=== PATIENT | male | born 1940 | race Caucasian/White ===

== ENCOUNTER 2024-09-21 20:42 | Observation (INO) | payer MEDICARE, SELFPAY ==
[2024-09-21] VITALS (13 sets, daily range): BP systolic 129–162; BP diastolic 68–84; PULSE 64–65; BMI 25.1; BMI 24.8
[2024-09-21 14:56] LABS: % Basophils 0.3 % (0-2); % Eosinophils 1.5 % (0-6); % Immature Granulocytes 0.3 % (0-0.5); % Lymphocytes 33.2 % (20.5-51.1); % Monocytes 9.7 % (1.7-9.3); Absolute Eosinophils 0.1 10^3/uL (0-0.7); Absolute Lymphocytes 1.1 10^3/uL (1.2-3.4); Absolute Monocytes 0.3 10^3/uL (0.1-0.6); Absolute Neutrophils 1.9 10^3/uL (1.4-6.5); Hematocrit 36.2 % (39.0-52.0); Hemoglobin 12.1 g/dL (13.0-18.0); Mean Corp Hgb Conc. 33.4 g/dL (33.0-37.0); Mean Corpuscular Hgb 34.7 pg (27.0-31.0); Mean Corpuscular Volume 103.7 fL (80.0-94.0); Mean Platelet Volume 10.4 fL (7.4-10.4); Nucleated Red Blood Cells % 0 % (-); Platelet Count 100 10^3/uL (130-400); Red Blood Cell Count 3.49 10^6/uL (4.70-6.10); Red Cell Dist. Width 13.4 % (11.5-14.5); White Blood Cell Count 3.4 10^3/uL (4.8-10.8)
[2024-09-21 15:12] LABS: ALT (SGPT) 23 U/L (0-50); AST (SGOT) 26 U/L (17-59); Albumin 3.9 g/dl (3.5-5.0); Alkaline Phosphatase 93 U/L (38-126); Blood Urea Nitrogen 18 mg/dl (9-20); Calcium 10.5 mg/dl (8.4-10.2); Carbon Dioxide 26 mmol/L (22-30); Chloride 108 mmol/L (98-107); Glucose 100 mg/dl (70-99); Potassium 4.3 mmol/L (3.5-5.1); Sodium 140 mmol/L (135-145); Total Bilirubin 0.5 mg/dl (0.2-1.3); Total Protein 6.2 g/dl (6.3-8.2); eGFR > 60.00
--- NOTE | 2024-09-21 17:49 | ED.CVA ---
History of Present Illness
General
Chief Complaint: CVA/TIA Symptoms
Source: patient and family
Time Seen by Provider: 09/21/24 14:59
Onset of Stroke Symptoms
Onset of symptoms known: No
Time pt last seen normal is known: No
History of Present Illness
History of Present Illness:
83-year-old male presents to the emergency room for evaluation of double vision and gait dysfunction. Symptoms began yesterday at some point. They seem to wax and wane in intensity. Patient describes his double vision is being 2 versions of what
he is seeing arranged in a vertical or diagonal pattern. The double vision is much worse with both eyes open. It goes away when his right eye is covered. Seems to be persistent when left eye is covered. Denies any headache. Family describes the
patient as cognitively sharp and active. He does not typically use any aids to ambulate but he did need to use his 's walker today. He definitely does not seem himself to them today.
Past History
Past History
ED Past Medical History: Other (head trauma in 01/2014 w/ 'bleeding in brain') and Other (Seizure disorder, aortic valve replacement with a Bovine valve, status post hip replacement, renal cell carcinoma status post nephrectomy in 2003)
Social History
Tobacco: Non-smoker
Alcohol: Occasional
Personal:
Living: with family
Family History
Family History: Other (Reviewed and non-contributory); Negative Diabetes
Phy Exam
Physical Exam
Physical Exam:
General: Awake, Alert, Oriented X3. No acute distress, appears somewhat disheveled
Vitals: unremarkable
Head: Atraumatic
Eyes: Pupils equal, extraocular muscle movement appears intact
Throat: Airway intact, no exudates
Neck: Trachea midline
Lungs: Clear and equal b/l
Heart: Regular rate, no murmurs
Abd: Soft, Nontender, No pulsatile mass
Neuro: Cranial nerves intact, muscle strength equal bilaterally, cerebellar exam normal
Skin: Warm, dry, no rash
Extremities: pulses equal b/l, no edema
Course
Orders/Labs/Results
Orders:
Orders
09/21/24 14:50
Complete Blood Count/With Diff Urgent
Comprehensive Metabolic Panel Urgent
09/21/24 15:10
CT Head & Neck Angio W/wo IV Urgent
Comment:
Reason For Exam: diplopia, ataxia
09/21/24 15:13
Electrocardiogram (*1) Stat
Reason for Study: Other
Other Reason for Exam: neuro symptoms
Cardiac Monitoring- Treatment ONCE
EKG- Treatment ONCE
09/21/24 17:48
Aspirin Chewable [Low Strength Aspirin] 324 mg PO NOW STA
Abnormal Lab Results
09/21/24
14:50
WBC 3.4 L 10^3/uL
(4.8-10.8)
RBC 3.49 L 10^6/uL
(4.70-6.10)
Hgb 12.1 L g/dL
(13.0-18.0)
Hct 36.2 L %
(39.0-52.0)
MCV 103.7 H fL
(80.0-94.0)
MCH 34.7 H pg
(27.0-31.0)
Plt Count 100 L 10^3/uL
(130-400)
Absolute Lymphs (auto) 1.1 L 10^3/uL
(1.2-3.4)
Monocytes % 9.7 H %
(1.7-9.3)
Chloride 108 H mmol/L
(98-107)
Glucose 100 H mg/dl
(70-99)
Calcium 10.5 H mg/dl
(8.4-10.2)
Total Protein 6.2 L g/dl
(6.3-8.2)
09/21/24 14:50
09/21/24 14:50
Vital Signs
Initial and Last Documented VS:
Initial Vital Signs
BP
140/79
09/21/24 13:33
Last Documented Vital Signs
Temp Pulse Resp BP Pulse Ox
97.9 F 55 18 145/75 96
09/21/24 13:35 09/21/24 18:45 09/21/24 18:45 09/21/24 16:01 09/21/24 18:45
MDM/Problems Addressed
Differential Diagnosis Includes:
CVA, intracranial lesion, subdural, electrolyte abnormality
MDM/Problems Addressed:
CT read is unremarkable. Labs also are unremarkable. However patient's symptoms persist. He he went to the bathroom and nursing observed him to need the assistance of a walker. Suspect the patient may have had a ischemic event affecting the
cerebellum. He will require hospitalization for further workup. Patient given 4 baby aspirin in the meantime.
Chronic conditions affecting care: HTN
*Radiology
Radiology exam reviewed: radiology read reviewed
*Pulse Oximetry
Patient hypoxic: no
*EKG
Interpretation: normal
Heart Rate: 71
Rate: normal
QRS Pattern: left bundle branch block
Ischemia: non-specific ST changes
*Delivery Engineer Interpretation
Rate: normal
Interpretation: normal
Rhythm: sinus
*Critical Care Note
Total Time (30-74mins, 75-104mins- exclusive of procedures): Not Applicable
ED Attending Note
-
Portions of this chart may have been created with voice recognition software.� Occasional wrong word or��sound alike� substitutions may have occurred due to the inherent limitations of voice recognition software.
Discharge Plan
Departure
Patient Disposition: Admit
Date of Disposition: 09/21/24
Time of Disposition: 17:52
Presentation/result/management discussed w/ accepting MD/DO: Hospitalist
Condition: Fair
Discharge Problem:
Diplopia, Ataxia
Prescriptions:
No Action
atorvastatin 80 MG tablet
80 mg PO DAILY
metoprolol succinate 50 MG tablet extended release 24 hr
25 mg PO BID
multivitamin [Daily Vitamin] 1 EACH tablet
1 tab PO DAILY
tamsulosin [Flomax] 0.4 MG capsule
0.4 mg PO DAILY
ascorbate calcium (vitamin C) 500 MG tablet
500 mg PO DAILY
finasteride 5 MG tablet
5 mg PO DAILY
cholecalciferol (vitamin D3) 1,000 UNIT capsule
1,000 mg PO DAILY
lamotrigine 200 mg Tablet
400 mg PO DAILY
olmesartan 20 mg Tablet
20 mg PO DAILY
memantine 14 mg Capsule,Sprinkle,Er 24hr
14 mg PO DAILY
Patient Comments:
HS
Referrals:
Vince Acharya MD [Family Provider] -
Interventions
Interventions:
*Risk Screen - Suicide Last Done: 09/21/24 13:35
*General Assessment Last Done: 09/21/24 13:35
*Neglect/Abuse Screening Last Done: 09/21/24 13:35
ED- Fall Risk Assessment Last Done: 09/21/24 19:07
*ED COVID-19 Vaccine History Last Done: 09/21/24 13:35
ED- Pulmonary Assessment Last Done: 09/21/24 14:44
ED- Neurological Assessment Last Done: 09/21/24 14:44
ED- Cardiac Assessment Last Done: 09/21/24 14:44
ED Swallowing Screen Last Done: 09/21/24 14:44
Discharge Date and Time
Print Language: SALVADOREAN
[2024-09-21] MEDS: LOW STRENGTH ASPIRIN 324 MG PO (17:57)
--- NOTE | 2024-09-21 19:28 | HPS.HSE ---
Family Physician
-
Family Physician: Vince Acharya
Chief Complaint
-
Ataxia and diplopia
History of Present Illness
This is a 83-year-old with past medical history significant for aortic stenosis status post repair, seizure, BPH, hypertension, hyperlipidemia, renal cancer status post nephrectomy, prior TIA presenting to the emergency department with a 1 day
history of ataxia and double vision.
Patient reports development of double vision starting around 24 hours ago. He reports that he went to sleep with the symptoms and then this morning when he arose he still had the symptoms. He reported that by the afternoon the symptoms were
improving. He tried to walk but had significant difficulty walking and seems to be falling to the left side so he called 911.
Patient reports his diplopia has both vertical and horizontal. It appears to be worse when he was looking to the right. But he also occurs with looking towards the left. He otherwise denies other vision changes such as blurry vision, tearing,
pain, headache and nausea or vomiting. Patient denies any numbness or tingling. He denies any facial asymmetry. Family reports that the speech mirlande is reduced but not markedly so. He denies any prior symptoms of vision abnormalities. He was
reported to have a TIA about 2 2 years ago. Denies any changes in medications.
In the ED he was afebrile, blood pressure was 145/75 with a pulse of 67 satting 97% on room air. Is a white count was 3.4 mm 0.1 plate count 100 which is not likely different from prior. Electrolytes BUN/creatinine were unchanged from prior. ECG
showed normal sinus rhythm right bundle branch block with a left anterior fascicular block rate [address] or T wave changes. CT head was unremarkable. CT angio was unremarkable.
Medical History
Past Medical History
Past Medical History: Reports Cancer (RCC in remission), CVA (TIA), HTN, Hypercholesterolemia, Seizures, Valvular Disease (Aortic stenosis status post bioprosthetic valve repair) and Other (BPH)
Past Surgical History: Reports Cardiac (Bioprosthetic valve repair) and Other (Right nephrectomy)
Social History
Tobacco: Non-smoker
Alcohol: None
Drug: None
Personal:
Living: With Family
Employment: Retired
Family History
Family History: Not pertinent
Allergies / Home Medications
Allergies reflects when Allergies were last updated in [facility].
Home Medications with original date entered in [facility]
Allergy/Medication List:
Allergies
Allergy/AdvReac Type Severity Reaction Status Date / Time
Sulfa (Sulfonamide Allergy Unknown Verified 09/21/24 13:37
Antibiotics)
sulfisoxazole Allergy Unknown Verified 09/21/24 13:37
Home Medications
ascorbate calcium (vitamin C) 500 mg tablet 500 mg PO DAILY 08/27/14
atorvastatin 80 mg tablet 80 mg PO DAILY 08/27/14
cholecalciferol (vitamin D3) 25 mcg (1,000 unit) capsule 1,000 mg PO DAILY 08/27/14
finasteride 5 mg tablet 5 mg PO DAILY 08/27/14
metoprolol succinate 50 mg tablet,extended release 24 hr 25 mg PO BID 08/27/14
multivitamin (Daily Vitamin tablet) 1 tab PO DAILY 08/27/14
tamsulosin 0.4 mg capsule (Flomax) 0.4 mg PO DAILY 08/27/14
lamotrigine 200 mg tablet 400 mg PO DAILY 09/21/24
memantine 14 mg capsule sprinkle,extended release 24hr 14 mg PO DAILY 09/21/24
olmesartan 20 mg tablet 20 mg PO DAILY 09/21/24
Review of Systems
-
History Source: Patient
Constitutional: Reports No Symptoms
EENT: Reports No Symptoms
Respiratory: Reports No Symptoms
Cardiac: Reports No Symptoms
Abdomen/GI: Reports No Symptoms
: Reports No Symptoms
Musculoskeletal: Reports No Symptoms
Skin: Reports No Symptoms
Neurological: Reports Other (double vision, ataxia)
Endocrine: Reports No Symptoms
Hematologic/Lymphatic: Reports No Symptoms
Psych: Reports No Symptoms
Physical Exam
Vital Signs
Vital Signs
Temp Pulse Resp BP Pulse Ox
97.9 F 55 18 145/75 96
09/21/24 13:35 09/21/24 18:45 09/21/24 18:45 09/21/24 16:01 09/21/24 18:45
Physical Exam
General: Well Developed, Well Nourished, No Apparent Distress, Comfortable and Conversant
HEENT: NormoCephalic, Anicteric, Moist mucous membranes, Atraumatic, PERRLA, No Ptosis and Other (EOMI)
Respiratory: Clear
Cardiac: S1/S2 and Regular Rhythm
Breast: Deferred by me
GI: Soft, Non Tender, Non Distended and Normal Bowel Sounds
Rectal: Deferred by Provider
Genito-urinary: Deferred by me
Musculoskeletal: No Clubbing, No Cyanosis and No Edema
Skin: Warm
Neuro: AO x 3, No Motor Deficits, Cranial Nerves Intact and No Sensory Deficits
Hematologic/Lymphatic: No Lymphadenopathy
Psych: Calm
Laboratory Results
-
09/21/24 14:50
09/21/24 14:50
Laboratory Results
Total Bilirubin 0.5 mg/dl (0.2-1.3) 09/21/24 14:50
AST 26 U/L (17-59) 09/21/24 14:50
ALT 23 U/L (0-50) 09/21/24 14:50
Alkaline Phosphatase 93 U/L (38-126) 09/21/24 14:50
Data Reviewed
-
CT Scan: Report Reviewed by me
Medical Tests (Nuc Med, Echo, EKG etc): Image Personally Visualized and interpreted
Lab Data: Labs Reviewed by me
Old Records: Reviewed
Impression/Plan
-
IMPRESSION:
Transient double vision now improved. Patient reports that he no longer has the double vision and currently NIHSS = 0. Unabel to test ataxia after improvement in vision. Labs unremarkable. CT/CTA head/neck without acute findings.
PLAN:
1. TIA - Possibly recurrent TIA, less likely a mononeuropathy multiplex now improved. Question of ataxia and possible cerebellar stroke remains.
- admit to telemetry observation
- tolerated po, continue aspirin/statin
- mri in am
- check esr, crp, tsh and orthostatics
- PT eval in am after mri
- continue lamtorigine
- continue his bp meds including metoprolol and olmesartan
- did not consult neuro given resolution of symptoms, consider consult pending mri and follow up examination
DVT PPx - lovenox sq
Code status - Full Code
--- NOTE | 2024-09-21 21:38 | VATNOTE ---
pt did not want pre-hospital iv site left forearm changed/restarted per protocol.
[2024-09-21] MEDS: TOPROL XL 25 MG PO (23:17)
[2024-09-21] MEDS: NON-FORMULARY ITEM 2 UNIT PO (23:48)
[2024-09-22 03:31] VITALS: BP 143/78
[2024-09-22 07:17] VITALS: BP 142/76
--- NOTE | 2024-09-22 08:51 | W.PN.HOSP.TC ---
Addendum entered and electronically signed by Torres Farrell MD 09/22/24 22:47:
Attending Addendum:
I saw and evaluated the patient. I reviewed the resident�s note and agree with findings and plan as documented in the resident�s note. Sub: no further diplopia or neuro sxs. wants to go home. Full 12 point ROS reviewed and negative except as
documented Exam: Vitals reviewed in chart GEN-NAd heart RRR lungs clear abd osft LE no edeam NEuro MS 5/5 sensation intact no gait abnormalities neg cerebella deficits
Plan:
# TIA with h/o chronic cerebellar CVA
- start asa and cont statin
- MRI- 1. No MRI evidence for acute infarct or intracranial hemorrhage.
2. 4 mm chronic ischemic infarct in the inferior right cerebellar hemisphere.
3. Mild diffuse cerebral and cerebellar volume loss.
4. Mild paranasal sinus mucosal disease.
- echo- Normal left ventricular size and systolic function without regional wall motion abnormality. LVEF 60-65%.
Moderate concentric left ventricular hypertrophy.Well-seated bioprosthetic aortic valve with normal gradients and no regurgitation.
- neuro input apprecaited - ok for DC f/u as OP
- chronic CVA
# s/p BPV
# BPH- cont finasteride/flomax
# HTN- cont metop and olmesartan
# Renal ca- s/p nephrectomy
# Seizure d/o- cont lamictal
# Dementia- cont mamantine
# HLD- cont atorvastatin
Time spent coordinating care, DC planning, review of DC plan of care with resident, transition of care, review of records, med rec/scripts sent electronically, consults, notes, d/w consultants, nursing, neuro, and CM� 34 mins
Original Note:
Today's Communication/Plan
-
.
Assessment / Plan
Assessment / Plan
Mr. Jamir Salazar is an 83yo M pmh HTN, seizure disorder, s/p AVR, HLD, and RCC s/p nephrectomy (2003) admitted for diplopia and gait dysfunction.
TIA
- concern for recurrent TIA
- ESR, TSH wnl
- head/neck CTA: No acute intracranial hemorrhage. The cervical carotid and vertebral arteries are patent minor calcified plaque in the carotid bulb, bilaterally. No other significant plaque, stenosis, occlusion, or dissection. No [facility]
region aneurysm or stenosis. No cerebral artery significant plaque, stenosis, thrombus, or occlusion
- echo w bubble: LVEF 60-65%, moderate concentric LVH
- MRI brain - no acute infarct. 4 mm chronic ischemic infarct in the inferior right cerebellar hemisphere.
- PT/OT
- neuro consulted: recommend 81mg asa daily
Seizure disorder
- cont lamotrigine
HTN/HLD
- cont metoprolol, olmesartan
- cont statin
Diet: cholesterol lowering
DVT prophylaxis: lovenox
Code status: FULL CODE
Anticipated Discharge: Today
Subjective/Interval History
-
Date of Service: September 22, 2024
Mr. Jamir Salazar is an 83yo M pmh HTN, seizure disorder, s/p AVR, HLD, and RCC s/p nephrectomy (2003) admitted for diplopia and gait dysfunction. Diplopia developed a day prior to admission. Had difficulty walking and felt he was falling to the
L side. Vertical and horizontal diplopia, worse when looking to the right. Speech mirlande was reduced yesterday. Hx TIA two years ago. Today, pt's diplopia has resolved and he is not having any left-sided weakness or balance issues.
Objective Data
-
Labs:
Laboratory Results
09/22/24
06:00
WBC Pending
Hgb Pending
Hct Pending
Plt Count Pending
Sodium Pending
Potassium Pending
Chloride Pending
Carbon Dioxide Pending
BUN Pending
Creatinine Pending
Glucose Pending
Calcium Pending
Vital Signs:
Vital Signs
Temp Pulse Resp BP Pulse Ox
98.3 F 64 20 142/76 97
09/22/24 07:17 09/22/24 07:17 09/22/24 07:17 09/22/24 07:17 09/22/24 07:17
Review of Systems
-
History Source: Patient
Constitutional: Reports No Symptoms
EENT: Reports No Symptoms Reported
Respiratory: Reports No Symptoms
Cardiac: Reports No Symptoms
Abdomen/GI: Reports No Symptoms
Genitourinary: Reports No Symptoms
Musculoskeletal: Reports No Symptoms
Skin: Reports No Symptoms
Neuro: Reports No Symptoms
Hematologic / Lymphatic: Reports No Symptoms
Physical Exam
-
General: Well Developed, Well Nourished, No Apparent Distress and Comfortable
HEENT: Normocephalic, Atraumatic and Moist Mucous Membranes
Respiratory: Clear to Auscultation; Negative Wheezes, Rales or Rhonchi
Cardiac: Regular Rhythm, S1/S2 and Murmur; Negative Rub or Gallop
GI: Soft, Nontender, Nondistended and Normal Bowel Sounds
Musculoskeletal: No Clubbing, No Cyanosis and No Edema
Skin: Warm and Dry
Neuro: AO x 3, No Motor Deficits, Nonfocal/Grossly Intact, Central Nerve's Intact, No Sensory Deficits and DTR's Intact & Symmetrica
Psych: Calm
[2024-09-22] MEDS: TOPROL XL 25 MG PO (09:01)
[2024-09-22] MEDS: BENICAR 20 MG PO (09:01)
[2024-09-22] MEDS: LIPITOR 80 MG PO (09:01)
[2024-09-22] MEDS: PROSCAR 5 MG PO (09:01)
[2024-09-22] MEDS: NAMENDA 5 MG PO (09:02)
[2024-09-22] MEDS: FLOMAX 0.4 MG PO (09:02)
[2024-09-22 10:36] VITALS: BP 131/73; PULSE 60
[2024-09-22 11:06] VITALS: BP 138/74
[2024-09-22 11:06] LABS: Hematocrit 39.4 % (39.0-52.0); Mean Corpuscular Hgb 34.9 pg (27.0-31.0); Mean Corpuscular Volume 105.6 fL (80.0-94.0); Mean Platelet Volume 10.8 fL (7.4-10.4); Platelet Count 111 10^3/uL (130-400); Red Blood Cell Count 3.73 10^6/uL (4.70-6.10); Red Cell Dist. Width 13.3 % (11.5-14.5); White Blood Cell Count 4.6 10^3/uL (4.8-10.8)
[2024-09-22 11:23] LABS: Blood Urea Nitrogen 12 mg/dl (9-20); Calcium 10.3 mg/dl (8.4-10.2); Carbon Dioxide 25 mmol/L (22-30); Chloride 105 mmol/L (98-107); Estimated Creatinine Clearance 61 ml/min; Glucose 95 mg/dl (70-99); HDL Cholesterol 87 mg/dl; LDL Cholesterol, Calculated 47 mg/dl; Magnesium 2.1 mg/dl (1.6-2.3); Sodium 135 mmol/L (135-145); Total Cholesterol 150 mg/dl (50-199); Triglyceride 83 mg/dl (10-149); Very Low Density Lipoprotein 16 mg/dl (0-30); eGFR > 60.00
[2024-09-22 11:26] VITALS: BP 113/70; BP 138/74; PULSE 64; PULSE 75
[2024-09-22 11:53] LABS: TSH 2.02 uIU/ml (0.47-4.68)
[2024-09-22 13:11] LABS: Erythrocyte Sed Rate 9 mm/hour (0-20)
--- NOTE | 2024-09-22 13:33 | CON.NEURO ---
Consultation
Order
Date of Consultation: 09/22/24
Requesting Provider: Gail Kingston DO
Reason for Consult: TIA
Neurology Consultation Note.
HPI: This is an 83-year-old RH male who presented to [facility] on 09-21-2024 with transient diplopia.
The patient endorses acute binocular painless diplopia worse with left lateral gaze that started on 09/20/2024 and lasted for over 24h. The diplopia was triggered by left lateral gaze and was associated with ataxia. Mr. Salazar recalls that objects
appearing slanted, on the side, and above each other. No reports of dysarthria, dysphagia, vertigo, dyspnea, headache, ptosis, motor or sensory deficits. Mr. Floyd admits to 6 months of progressive dysphonia as well as chronic bilateral hearing
impairment and tinnitus.
The patient has a history of epilepsy and is under care of Dr. Mark Adam. He states that his first seizure occurred in his 60s. He has had approximately 10 to 12 seizures in total, with 4 to 5 being 'major ones '. He reports having minor
seizures a couple of weeks ago, which his described as nocturnal, lasting about a minute and involving body shaking.
ER VS: 140/79, 68, afebrile
EKG:NSR, RBBB, QTc Int : 475 ms
PDMP:none
Labs: Glucose�100, WBCs�3.4, hemoglobin�12.1, platelets�100�111, creatinine�1.2, calcium�10.3, LDL�47, normal TSH,
Brain MRI�chronic right cerebellar infarct, diffuse atrophy, no evidence of acute infarct
CTA head/neck
PMH: epilepsy, MCI, right RCC, HTN, DLP, BPH vitamin B12, D deficiency, RA, CYNDY
PSH: bioprosthetic AVR, right nephrectomy, JAMES
SH: , retired; nonsmoker; no history of excessive alcohol use
FH: Father�colon cancer
All:sulfas
ROS:Constitutional: Negative. Negative for chills, fever and unexpected weight change.
HENT: Positive for chronic tinnitus and hearing impairment, hypophonia.
Eyes: Positive for transient diplopia
Respiratory: Negative for cough, choking and shortness of breath.
Cardiovascular: Negative for chest pain, palpitations and leg swelling.
Gastrointestinal: Negative for abdominal pain and vomiting.
Endocrine: Negative. Negative for cold intolerance.
Musculoskeletal: Positive for chronic right shoulder pain and limited range of motion.
Skin: Negative for rash.
Allergic/Immunologic: Negative. Negative for immunocompromised state.
Neurological: Positive for recurrent seizures
Psychiatric/Behavioral: Negative for behavioral problems, confusion and hallucinations.
General: Well developed. In no acute distress.
Cardio: Regular rate and rhythm without murmur. Extremities are without cyanosis or edema.
Neuro:
Mental Status: Alert, oriented to person, place, and date. Normal attention. Impaired delayed recall. Good fund of knowledge. Follows complex requests across the midline. Comprehension, naming, and repetition intact.
Cranial Nerves: Pupils are equally round and reactive to light. EOMs full. Visual nelson full to confrontation. No ptosis. No nystagmus. V1-V3 intact to light touch and pinprick bilaterally, symmetric. Face symmetric. Poor hearing AU. The
palate elevated well. SCMs and traps 5/5. Tongue midline. No dysarthria. Moderate hypophonia.
Motor: Normal bulk and tone. No pronator or arm drift. Strength 5/5 throughout except for pain related to right arm abduction, rotation. No clonus.
Reflexes: Negative grasp bilaterally. 2+ and upper extremities, patellar's.
Sensory: Preserved vibration at the ankles.
Coordination: No dysmetria or tremor.
Gait: deferred
Assessment and Plan:
I. Transient R right superior oblique palsy.
II. MCI, history of epilepsy
III. R rotator cuff syndrome.
IV. Chronic right cerebellar infarct
-Continue Telemetry monitoring.
-Aspiration precautions.
-Please check MG panel
-Aspirin 81 mg once a day
-Outpatient neuro-ophthalmology consult
-Continue home dose of Lamictal, please add on Lamictal level to admission labs
-No driving until cleared by neurology/ophthalmology.
-PT.
-DVT prophylaxis.
-Please recall neurology services any questions or concerns.
I personally reviewed all radiology and labs along with past medical records pertinent to current medical problems. Total time spent in patient care is 60 minutes.
Thank you for allowing us to participate in the care of this patient. Please do not hesitate to contact us with any questions or concerns.
Subjective/Objective
Subjective Data
Date of Service: September 22, 2024
Objective Data
Vital Signs
Temp Pulse Resp BP Pulse Ox
36.6 C 64 20 138/74 96
09/22/24 11:06 09/22/24 11:06 09/22/24 11:06 09/22/24 11:06 09/22/24 11:06
Lab Results
09/22/24 10:44
09/22/24 10:44
Sodium 135 mmol/L (135-145) 09/22/24 10:44
Potassium 4.0 mmol/L (3.5-5.1) 09/22/24 10:44
BUN 12 mg/dl (9-20) 09/22/24 10:44
Glucose 95 mg/dl (70-99) 09/22/24 10:44
Calcium 10.3 mg/dl (8.4-10.2) H 09/22/24 10:44
LDL Cholesterol, Calc 47 mg/dl 09/22/24 10:44
Patient Allergies
Sulfa (Sulfonamide Antibiotics) Allergy (Verified 09/21/24 13:37)
Unknown
sulfisoxazole Allergy (Verified 09/21/24 13:37)
Unknown
Medications
-
Active Medications
Generic Name Dose Route Start Last Admin
Trade Name Freq PRN Reason Stop Dose Admin
Acetaminophen 650 mg 09/21/24 20:45
Acetaminophen 650 Mg Rectal Suppository RECTAL 10/19/24 20:44
Q4HPRN PRN
MURRAY, mild pain, or temp >100.4F
Acetaminophen 650 mg 09/21/24 20:45
Acetaminophen 325 Mg Tablet PO 10/19/24 20:44
Q4HPRN PRN
MURRAY, mild pain, or temp >100.4F
Atorvastatin Calcium 80 mg 09/22/24 08:00 09/22/24 09:01
Atorvastatin (Lipitor) 80 Mg Tablet PO 10/20/24 07:59 80 mg
DAILY AGNES Administration
Enoxaparin Sodium 40 mg 09/22/24 18:00
Enoxaparin Sodium 40 Mg/0.4 Ml Syringe SC 10/20/24 17:59
QPM AGNES
Finasteride 5 mg 09/22/24 08:00 09/22/24 09:01
Finasteride 5 Mg Tablet PO 10/20/24 07:59 5 mg
DAILY AGNES Administration
Memantine 5 mg 09/22/24 08:00 09/22/24 09:02
Memantine 10 Mg Tablet PO 10/20/24 07:59 5 mg
BID AGNES Administration
Metoprolol Succinate 25 mg 09/21/24 21:00 09/22/24 09:01
Metoprolol 25 Mg Extended Release Tablet PO 10/19/24 20:59 25 mg
BID AGNES Administration
Lamotrigine Er 200mg 0 unit 09/21/24 23:00 09/21/24 23:48
Po Take 2 Tabs (400 PO 10/19/24 22:59 2 unit
Mg) Po Qhs HS AGNES Administration
Olmesartan 20 mg 09/22/24 08:00 09/22/24 09:01
Olmesartan 20 Mg Tablet PO 10/20/24 07:59 20 mg
DAILY AGNES Administration
Sodium Chloride 0 flush 09/21/24 21:00
Sodium Chloride 0.9% (Flush) Syringe IV 10/19/24 20:59
PER PROTOCOL AGNES
Tamsulosin HCl 0.4 mg 09/22/24 08:00 09/22/24 09:02
Tamsulosin 0.4 Mg Capsule PO 10/20/24 07:59 0.4 mg
DAILY AGNES Administration
Home Medications
�Medication �Instructions �Recorded
ascorbate calcium (vitamin C) 500 500 mg PO DAILY 08/27/14
mg tablet
atorvastatin 80 mg tablet 80 mg PO DAILY 08/27/14
cholecalciferol (vitamin D3) 25 1,000 mg PO DAILY 08/27/14
mcg (1,000 unit) capsule
finasteride 5 mg tablet 5 mg PO DAILY 08/27/14
metoprolol succinate 50 mg 25 mg PO BID 08/27/14
tablet,extended release 24 hr
multivitamin (Daily Vitamin tablet) 1 tab PO DAILY 08/27/14
tamsulosin 0.4 mg capsule (Flomax) 0.4 mg PO DAILY 08/27/14
lamotrigine 200 mg tablet 400 mg PO DAILY 09/21/24
memantine 14 mg capsule 14 mg PO DAILY 09/21/24
sprinkle,extended release 24hr
olmesartan 20 mg tablet 20 mg PO DAILY 09/21/24
Vital Signs and Labs
-
Vital Signs and Labs:
Vital Signs
Temp Pulse Resp BP Pulse Ox
36.6 C 64 20 138/74 96
09/22/24 11:06 09/22/24 11:06 09/22/24 11:06 09/22/24 11:06 09/22/24 11:06
Lab Results
09/22/24 10:44
09/22/24 10:44
Sodium 135 mmol/L (135-145) 09/22/24 10:44
Potassium 4.0 mmol/L (3.5-5.1) 09/22/24 10:44
BUN 12 mg/dl (9-20) 09/22/24 10:44
Glucose 95 mg/dl (70-99) 09/22/24 10:44
Calcium 10.3 mg/dl (8.4-10.2) H 09/22/24 10:44
LDL Cholesterol, Calc 47 mg/dl 09/22/24 10:44
Medications
-
Medications:
Generic Name Dose Route Start Last Admin
Trade Name Freq PRN Reason Stop Dose Admin
Acetaminophen 650 mg 09/21/24 20:45
Acetaminophen 650 Mg Rectal Suppository RECTAL 10/19/24 20:44
Q4HPRN PRN
MURRAY, mild pain, or temp >100.4F
Acetaminophen 650 mg 09/21/24 20:45
Acetaminophen 325 Mg Tablet PO 10/19/24 20:44
Q4HPRN PRN
MURRAY, mild pain, or temp >100.4F
Atorvastatin Calcium 80 mg 09/22/24 08:00 09/22/24 09:01
Atorvastatin (Lipitor) 80 Mg Tablet PO 10/20/24 07:59 80 mg
DAILY AGNES Administration
Enoxaparin Sodium 40 mg 09/22/24 18:00
Enoxaparin Sodium 40 Mg/0.4 Ml Syringe SC 10/20/24 17:59
QPM AGNES
Finasteride 5 mg 09/22/24 08:00 09/22/24 09:01
Finasteride 5 Mg Tablet PO 10/20/24 07:59 5 mg
DAILY AGNES Administration
Memantine 5 mg 09/22/24 08:00 09/22/24 09:02
Memantine 10 Mg Tablet PO 10/20/24 07:59 5 mg
BID AGNES Administration
Metoprolol Succinate 25 mg 09/21/24 21:00 09/22/24 09:01
Metoprolol 25 Mg Extended Release Tablet PO 10/19/24 20:59 25 mg
BID AGNES Administration
Lamotrigine Er 200mg 0 unit 09/21/24 23:00 09/21/24 23:48
Po Take 2 Tabs (400 PO 10/19/24 22:59 2 unit
Mg) Po Qhs HS AGNES Administration
Olmesartan 20 mg 09/22/24 08:00 09/22/24 09:01
Olmesartan 20 Mg Tablet PO 10/20/24 07:59 20 mg
DAILY AGNES Administration
Sodium Chloride 0 flush 09/21/24 21:00
Sodium Chloride 0.9% (Flush) Syringe IV 10/19/24 20:59
PER PROTOCOL AGNES
Tamsulosin HCl 0.4 mg 09/22/24 08:00 09/22/24 09:02
Tamsulosin 0.4 Mg Capsule PO 10/20/24 07:59 0.4 mg
DAILY AGNES Administration
Home Medications
-
Home Medications
ascorbate calcium (vitamin C) 500 mg tablet 500 mg PO DAILY 08/27/14
atorvastatin 80 mg tablet 80 mg PO DAILY 08/27/14
cholecalciferol (vitamin D3) 25 mcg (1,000 unit) capsule 1,000 mg PO DAILY 08/27/14
finasteride 5 mg tablet 5 mg PO DAILY 08/27/14
metoprolol succinate 50 mg tablet,extended release 24 hr 25 mg PO BID 08/27/14
multivitamin (Daily Vitamin tablet) 1 tab PO DAILY 08/27/14
tamsulosin 0.4 mg capsule (Flomax) 0.4 mg PO DAILY 08/27/14
lamotrigine 200 mg tablet 400 mg PO DAILY 09/21/24
memantine 14 mg capsule sprinkle,extended release 24hr 14 mg PO DAILY 09/21/24
olmesartan 20 mg tablet 20 mg PO DAILY 09/21/24
[2024-09-22 15:49] VITALS: BP 108/52
--- NOTE | 2024-09-22 16:16 | CM ---
LIN met with Jamir at bedside to complete IA. He reports that he lives in a large 5 story home in the [facility] with his , son and grandchildren. He appeared slightly confused at the time of my visit; he said he was waiting for his to pick
him up and take him home, however discharge is not ordered at this time.
He reports that he is typically (I) amb and adls; admitted for ataxia and double vision which has resolved.
Plan: Discharge to home with no identified needs.
--- NOTE | 2024-09-22 17:30 | W.DCSUMMARY ---
Addendum entered and electronically signed by Torres Farrell MD 09/22/24 22:48:
Read, reviewed, and agree. See same day progress note for additional details.
Davis Farrell MD
Original Note:
Documented by User: Gail Kingston DO, Resident 09/22/24 18:30
Discharge Summary
Discharge Data
Date of Admission: 09/21/24
Date of Discharge: 09/22/24
-
Pending Results: No
Hospital Course
Discharging Physician : Dr. Gail Kingston, Dr. Davis Farrell
Disposition : home
Primary care physician : Vince Acharya
Principal Discharge diagnosis : TIA
Chronic Discharge diagnosis : CVA, HTN, seizure disorder, s/p AVR, HLD
Hospital Course : Admitted for diplopia gait dysfunction, L sided weakness. His speech mirlande was also reduced on admission. Pt's symptoms resolved by the following day. Seen by neurology - recommend 81mg ASA daily, outpatient neurology
evaluation. Imaging findings concerning for a chronic CVA. Pt asymptomatic, hemodynamically stable, and afebrile. Instructed pt to return to ED if he experiences similar symptoms.
Important imaging findings :
Head/neck CTA:
No acute intracranial hemorrhage.
The cervical carotid and vertebral arteries are patent minor calcified plaque in the carotid bulb, bilaterally. No other significant plaque, stenosis, occlusion, or dissection.
No [place] region aneurysm or stenosis.
No cerebral artery significant plaque, stenosis, thrombus, or occlusion.
Brain MRI:
1. No MRI evidence for acute infarct or intracranial hemorrhage.
2. 4 mm chronic ischemic infarct in the inferior right cerebellar hemisphere.
3. Mild diffuse cerebral and cerebellar volume loss.
4. Mild paranasal sinus mucosal disease.
Echo:
Normal left ventricular size and systolic function without regional wall motion abnormality. LVEF 60-65%.
Moderate concentric left ventricular hypertrophy.
Dilated right ventricle with normal systolic function.
Biatrial enlargement.
Well-seated bioprosthetic aortic valve with normal gradients and no regurgitation.
Top normal pulmonary artery pressures (36 mmHg).
Procedure findings : n/a
Discharge Plan
-
Patient Disposition: Home (Routine Discharge)
Discharge Diagnosis/Procedures: TIA, HTN, HLD, seizures, s/p AVR, BPH
Condition: Good
Diet: As tolerated
Activity: As tolerated
Driving Restrictions: As prior to admission
Bathing Restrictions: None
Referrals:
Betina Charles MD [Active] - in one month
Vince Acharya MD [Family Provider] - in less than 1 week
Additional Discharge Medication Instructions: 1 tablet of 81 mg of aspirin to be taken daily for TIA
Follow-up with neurology outpatient
Prescriptions:
New
aspirin 81 mg capsule
81 mg PO DAILY 30 Days Qty: 30 0RF
Continued
atorvastatin 80 MG tablet
80 mg PO DAILY
metoprolol succinate 50 MG tablet extended release 24 hr
25 mg PO BID
multivitamin [Daily Vitamin] 1 EACH tablet
1 tab PO DAILY
tamsulosin [Flomax] 0.4 MG capsule
0.4 mg PO DAILY
ascorbate calcium (vitamin C) 500 MG tablet
500 mg PO DAILY
finasteride 5 MG tablet
5 mg PO DAILY
cholecalciferol (vitamin D3) 1,000 UNIT capsule
1,000 mg PO DAILY
lamotrigine 200 mg Tablet
400 mg PO DAILY
Rx Instructions:
pt takes it at night
olmesartan 20 mg Tablet
20 mg PO DAILY
memantine 14 mg Capsule,Sprinkle,Er 24hr
14 mg PO DAILY
Patient Comments:
HS
Discharge Orders:
Discharge Patient (As Directed); Ordered 09/22/24
Ordered By: Gail Kingston
Discharge Date and Time
Discharge Date/Time: 09/22/24 18:11
Print Language: STATELESS

Documented by User: Torres Farrell MD 09/22/24 22:38
Discharge Summary
Discharge Data
Date of Admission: 09/21/24
Date of Discharge: 09/22/24
Discharge Plan
-
Patient Disposition: Home (Routine Discharge)
Discharge Diagnosis/Procedures: TIA, HTN, HLD, seizures, s/p AVR, BPH
Condition: Good
Diet: As tolerated
Activity: As tolerated
Driving Restrictions: As prior to admission
Bathing Restrictions: None
Referrals:
Betina Charles MD [Active] - in one month
Vince Acharya MD [Family Provider] - in less than 1 week
Additional Discharge Medication Instructions: 1 tablet of 81 mg of aspirin to be taken daily for TIA
Follow-up with neurology outpatient
Prescriptions:
New
aspirin 81 mg capsule
81 mg PO DAILY 30 Days Qty: 30 0RF
Continued
atorvastatin 80 MG tablet
80 mg PO DAILY
metoprolol succinate 50 MG tablet extended release 24 hr
25 mg PO BID
multivitamin [Daily Vitamin] 1 EACH tablet
1 tab PO DAILY
tamsulosin [Flomax] 0.4 MG capsule
0.4 mg PO DAILY
ascorbate calcium (vitamin C) 500 MG tablet
500 mg PO DAILY
finasteride 5 MG tablet
5 mg PO DAILY
cholecalciferol (vitamin D3) 1,000 UNIT capsule
1,000 mg PO DAILY
lamotrigine 200 mg Tablet
400 mg PO DAILY
Rx Instructions:
pt takes it at night
olmesartan 20 mg Tablet
20 mg PO DAILY
memantine 14 mg Capsule,Sprinkle,Er 24hr
14 mg PO DAILY
Patient Comments:
HS
Discharge Orders:
Discharge Patient (As Directed); Ordered 09/22/24
Ordered By: Gail Kingston
Discharge Date and Time
Discharge Date/Time: 09/22/24 18:11
Print Language: STATELESS
== END 2024-09-22 18:11 | disposition home or self-care (01) ==
LOC: 4 EAST ACU 20:42
PROVIDERS: Physician Assistant; ADMITTING PHYSICIAN Internal Medicine; ATTENDING PHYSICIAN Family Medicine; CONSULT PHYSICIAN Psychiatry & Neurology Neurology; EMERGENCY PHYSICIAN Emergency Medicine; FAMILY PHYSICIAN Family Medicine
DX: G45.9 Transient cerebral ischemic attack, unspecified (principal); H53.2 Diplopia; G40.909 Epilepsy, unspecified, not intractable, without status epilepticus; R27.0 Ataxia, unspecified; R29.818 Other symptoms and signs involving the nervous system; I35.0 Nonrheumatic aortic (valve) stenosis; G47.33 Obstructive sleep apnea (adult) (pediatric); M06.9 Rheumatoid arthritis, unspecified; F03.90 Unspecified dementia, unspecified severity, without behavioral disturbance, psychotic disturbance, mood disturbance, and anxiety; N40.0 Benign prostatic hyperplasia without lower urinary tract symptoms; I11.9 Hypertensive heart disease without heart failure; E78.00 Pure hypercholesterolemia, unspecified; I45.2 Bifascicular block; Z86.73 Personal history of transient ischemic attack (TIA), and cerebral infarction without residual deficits; Z90.5 Acquired absence of kidney; Z88.2 Allergy status to sulfonamides; Z95.3 Presence of xenogenic heart valve; Z80.0 Family history of malignant neoplasm of digestive organs; Z85.528 Personal history of other malignant neoplasm of kidney
CPT/HCPCS: 70496; 70498; 70551; 80048; 80053; 80061; 83735; 84443; 85025; 85027; 85652; 93005; 93306; 97116; 97163; 99285; G0378; Q9967